=== PATIENT | female | born 2000 | race Hispanic/Latino ===

== ENCOUNTER 2020-01-16 14:10 | Inpatient (IN) | payer OTHER ==
[~2020-01-16] VITALS: Ht 154.9 cm; Wt 84.8 kg
[~2020-01-16 14:10] MED LIST: PRENATAL VITAM1 EACH PO
--- NOTE | 2020-01-16 20:53 | PR ---
[facility] [address] [facility] [place], [place] [address] Signed Progress Notes IP Datetime Report Generated by CPN: 01/16/2020 20:53 PROGRESS NOTES: [id number] Impression: Normal Progression of Labor Procedures: Artificial ROM Plan: Continue Present Management; Anticipate Vaginal Delivery VITAL SIGNS: [id number] Vital Signs: Reviewed; Within Normal Limits EXAM: [id number] Dilatation: 7.0 Effacement: 90 Station: -2 Contractions: irregular, pt feeling mild cramping MEMBRANES: [id number] Membranes Status: Ruptured ROM Note: nitrazine neg in vaginal vault, Comments: Pt very comfortable with contractions s/p epidural Amniotomy performed without difficulty Progressing well on pitocin, continue current mgmt s/p 2 doses Chasidy for GBS+ Anticipate FETUS A: [id number] FHR Baseline: 135 Variability: Moderate 6-25bpm Accelerations: 15X15 Decelerations: None FHR Category: Category I Presentation: Vertex FETUS B: [id number] Signing Physician: Ellie Grover DO Copies: ~ *Electronically Signed* 01/16/202052 ELLIE GROVER DO PATIENT NAME: CHRISTIANO PUCKETT PROGRESS NOTE DATE OF : [birth year] PHYSICIAN: ELLIE GROVER DO RPT #: [id number] REPORT IS CONFIDENTIAL AND NOT TO BE RELEASED WITHOUT AUTHORIZATION
--- NOTE | 2020-01-18 12:22 | PR ---
[facility] [address] [facility] [place], [place] [address] Signed PP Progress Notes Datetime Report Generated by CPN: 01/18/2020 12:22 SUBJECTIVE: [id number] Pain: Abnormal Nausea/Vomiting: Denies Flatus: Yes Bowel Movement: No Vital Signs: [id number] Vital Signs: Reviewed; Within Normal Limits EXAM: Ongoing Cardiovascular: Normal Respiratory: Normal Abdomen/Uterus: Normal Lochia: Normal Extremities: Normal Progress: Not Applicable IMPRESSION/PLAN/PROCEDURES: [id number] Impression: Normal Progression Plan: Continue Present Management; Discharge Progress Notes: PPD#2 s/p Progressing well, normal course Insufficient care -follow-up in office in 1-2 weeks -flu vaccine prior to discharge Signing Physician: Lucas Grover DO Copies: ~ *Electronically Signed* 01/18/20 1222 LUCAS GROVER DO PATIENT NAME: CHRISTIANO PUCKETT PROGRESS NOTE DATE OF : 98 PHYSICIAN: LUCAS GROVER DO RPT #: [id number] REPORT IS CONFIDENTIAL AND NOT TO BE RELEASED WITHOUT AUTHORIZATION
== END 2020-01-18 16:05 | disposition home or self-care (01) | DRG 807 ==
LOC: FBC 14:10 → MS 01-17 14:35 → FBC 01-17 14:37
PROVIDERS: ADMIT Obstetrics & Gynecology; ATTEND Obstetrics & Gynecology
PROC: 10E0XZZ Delivery of Products of Conception, External Approach (ICD-10-PCS; principal; 2020-01-16)
PROC: 10907ZC Drainage of Amniotic Fluid, Therapeutic from Products of Conception, Via Natural or Artificial Opening (ICD-10-PCS; 2020-01-16)
PROC: 00HU33Z Insertion of Infusion Device into Spinal Canal, Percutaneous Approach (ICD-10-PCS; 2020-01-16)
PROC: 3E0R3BZ Introduction of Anesthetic Agent into Spinal Canal, Percutaneous Approach (ICD-10-PCS; 2020-01-16)
DX: O48.0 Post-term pregnancy (principal); Z37.0 Single live birth; Z3A.41 41 weeks gestation of pregnancy; O99.824 Streptococcus B carrier state complicating childbirth
CPT/HCPCS: 85027; A9270; J2540; J2590; J2795; J3010; J7121

== ENCOUNTER 2024-06-04 22:27 | Emergency (ER) | payer OTHER ==
[~2024-06-04] VITALS: Ht 152.4 cm; Wt 82.0 kg
[2024-06-04] MEDS ORDERED: SODIUM CHLORIDE 0.9% 1,000 ML IV ONE (23:00)
[2024-06-04] MEDS ORDERED: ondansetron HCL 4 MG/2 ML VIAL IV ONE (23:00)
[2024-06-04 23:10] LABS: BASOPHILS 0.3 % (0-2); EOSINOPHILS 0.1 % (0-6); HEMOGLOBIN 16.5 g/dL (12.0-18.0); LYMPHOCYTES 18.7 % (24-44); MCH 31.8 (27-36); MCHC 35.1 g/dl (30-36); MCV 90.7 fl (81-99); MONOCYTES 5.5 % (0-12); NEUTROPHILS 75.4 % (39-80); PLATELET COUNT 301 K/uL (140-440); RBC 5.18 M/ul (4.3-5.7); RDW 12.9 (10.5-15.0)
[2024-06-04 23:54] LABS: BILIRUBIN, URINE NEGATIVE (negative); BLOOD/HGB, URINE NEGATIVE (Negative); KETONE, URINE >=80 (Negative); LEUK ESTERASE, URINE SMALL (negative); NITRITE, URINE NEGATIVE (negative)
[2024-06-04 23:55] LABS: ALBUMIN 4.9 g/dL (3.4-5.0); ALBUMIN/GLOBULIN RATIO 1.14 (1.1-2.4); ANION GAP 15.3 (7-21); BILIRUBIN, TOTAL 0.7 mg/dL (0.2-1.0); BUN/CREATININE RATIO 36.36 (6.0-28.6); CALCIUM 9.9 mg/dL (8.5-10.1); CREATININE, SERUM 0.66 mg/dL (0.55-1.02); MAGNESIUM 2.2 mg/dL (1.8-2.4); POTASSIUM 3.3 mmol/L (3.5-5.1); PROTEIN, TOTAL 9.2 g/dL (6.4-8.2)
[2024-06-05 00:13] LABS: BACTERIA, URINE 1+ /hpf (negative); CASTS, URINE NONE SEEN \\lpf; CRYSTALS, URINE NONE SEEN (0-1+); EPITHELIAL CELLS, URINE SQUAMOUS 3+ /lpf (0-1+); RED BLOOD CELLS, URINE 0-1 /hpf (0-5)
[2024-06-05] MEDS ORDERED: ONDANSETRON ODT8 MG PO (00:13)
[2024-06-05 00:14] LABS: COLLECTION TYPE, URINE CLEAN CATCH; REFLEX CULTURE, URINE No (No)
[2024-06-05] MEDS ORDERED: ONDANSETRON 4 MG HOME.PACK SL ONE (00:15)
[2024-06-05 00:47] VITALS: BP 119/81
== END 2024-06-05 01:04 | disposition home or self-care (01) ==
LOC: ED 22:27
PROVIDERS: Family Medicine
DX: O21.0 Mild hyperemesis gravidarum (principal); Z3A.01 Less than 8 weeks gestation of pregnancy
CPT/HCPCS: 36415; 80053; 81001; 83735; 84702; 85025; 96361; 96374; 99284-25; A9270; J2405; J7030